=== PATIENT | female | born 1935 | race Caucasian/White ===

== ENCOUNTER 2017-09-14 17:58 | Inpatient (IN) | payer MEDICARE ==
[2017-09-14 18:52] LABS: ABS Basophils 0.1 10^3/ul (0-0.2); ABS Eosinophils 0.1 10^3/ul (0-0.6); ABS Lymphocytes 1.1 10^3/ul (1.0-4.8); ABS Monocytes 0.5 10^3/ul (0-0.8); ABS Neutrophils 6.8 10^3/ul (1.5-7.7); ABS Nucleated RBC 0 10^3/ul; Eosinophil % 0.9 % (0-6); Hematocrit 38 % (35-47); Hemoglobin 12.7 g/dl (12.0-16.0); Lymphocyte % 12.8 % (25-47); Mean Corpuscular HGB Conc 34 g/dl (31-36); Mean Corpuscular Hemoglobin 33 pg (27-31); Mean Corpuscular Volume 99 fL (80-97); Mean Platelet Volume 9 um3 (7.4-10.4); Nucleated Red Blood Cells % 0.2; Platelet Count 162 10^3/ul (150-450); Red Blood Count 3.81 10^6/ul (4.0-5.4); Red Cell Distribution Width 14 % (10.5-15); White Blood Count 8.6 10^3/ul (3.5-10.8)
[2017-09-14 19:01] LABS: EGFR Non-African American 68.8 (>60)
--- NOTE | 2017-09-14 19:17 | RAD ---
Indication: Fall. Indeterminate loss of consciousness. Comparison: No relevant prior exams available on the [facility] for comparison. Technique: Noncontrast CT vertex of skull through foramen magnum. Report: Moderately severe prominence of the cerebral sulci reflecting atrophy. Unremarkable ventricles and basal cisterns. 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 No kee matter white matter obscuration is seen in association with mass effect. Negative for intra or extra-axial hemorrhage. Symmetric mild calcification at the basal ganglia. Unremarkable orbital contents. Negative for fracture or suspicious lesion of the calvarium or skull base. Fluid level and gas bubbles at the LEFT sphenoid sinus. Negative for scalp hematoma. IMPRESSION: 1. No evidence for traumatic brain injury or acute intracranial process. 2. 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 3. Correlate for potential acute LEFT sphenoid sinusitis.
--- NOTE | 2017-09-14 19:21 | RAD ---
Indication: Syncope. Comparison: October 27, 2013 Technique: Upright AP 1852 hours Report: Cardiomegaly. Mild prominence of the central pulmonary vasculature. Mild prominence of the peripheral interstitial markings. Trace fluid in the RIGHT minor fissure. Small dependent pleural effusions with proportional basilar atelectasis. Negative for pneumothorax. IMPRESSION: Probable mild pulmonary vascular congestion with associated small pleural effusions and basilar atelectasis.
--- NOTE | 2017-09-14 19:25 | RAD ---
INDICATION: Syncope. Back pain. COMPARISON: October 27, 2013 CT angiogram. TECHNIQUE: Multidetector CT images foramen magnum to lung apices without contrast. Multiplanar reformation. REPORT: Normal vertebral alignment accounting for exam positioning without spondylolisthesis or subluxation at any level. Negative for cervical vertebral body or posterior element fracture. Negative for paravertebral hematoma. Degenerative spondylosis and facet joint osteoarthritis. Disc space narrowing is most prominent at C6-C7 moderately severe. At C6-C7 uncinate process spurring results in mild LEFT foraminal stenosis. No evidence for central canal stenosis. IMPRESSION: No CT evidence for traumatic brain injury.
[2017-09-14] MEDS ORDERED: NS 0.9% 500 ML* 500 ML IV ONE (19:28)
--- NOTE | 2017-09-14 20:43 | RAD ---
Indication: Fall with facial trauma. Bruise at the LEFT eye. Comparison: CT brain of the same date. TECHNIQUE: Multidetector CT base of the skull through mandible without contrast. Multiplanar reformation. Report: The orbital and maxillary sinus margins, zygomatic arches, lamina papyracea, base of the maxilla, pterygoid plates, and nasal bones are intact. The senile morphology mandible is intact. Normal temporal mandibular joint alignment. Fluid level and gas bubbles in the LEFT sphenoid sinus. Minimal soft tissue swelling at the LEFT malar eminence and preseptal orbital region without loculated hematoma. Unremarkable orbital contents. IMPRESSION: 1. No evidence for facial fracture. 2. Minimal soft tissue swelling at the LEFT malar eminence and preseptal orbital region without loculated hematoma. 3. Correlate for potential acute sphenoid sinusitis.
[2017-09-14] MEDS ORDERED: Metoprolol Tartrate TAB* 50 mg PO ONE (20:59)
--- NOTE | 2017-09-14 21:37 | ED ---
Judy Acosta Abhishek, scribed for Marina Avalos MD on 09/14/17 at 2116 . Complex/Multi-Sys Presentation - HPI Summary HPI Summary: This patient is an 82 year old F presenting to [facility] accompanied by son with a chief complaint of abrasion s/p fall since earlier today. According to the patients son, the patient woke up on the floor, inside the dining room, and was getting ready to close the door. The patient rates the pain 8/10 in severity. Symptoms aggravated by nothing. Symptoms alleviated by nothing. Patient reports bleeding from her mouth (prior to [facility] arrival), back pain ( acute from chronic back pain), and ecchymosis above the left eye. Patient denies edema LE, fever, HU, double vision blurry vision, ear ache neck pain chest pain, and ambulation. Patient was unable to recall the mechanism of the fall. - History Of Current Complaint Chief Complaint: EDSyncope Time Seen by Provider: 09/14/17 18:18 Hx Obtained From: Patient Onset/Duration: Sudden Onset, Lasting Hours - earlier today Location: Pain At: - back Aggravating Factor(s): nothing Alleviating Factor(s): nothing Associated Signs And Symptoms: Positive: Syncope - (unable to recall mechanism of fall), Back Pain - acute on chronic, Other - Bleeding from her mouth (prior to [facility] arrival), and ecchymosis above the left eye. Negative edema LE, HU, double vision, blurry vision, ear ache, neck pain and ambulation.. Negative: Chest Pain, Fever - Allergies/Home Medications Allergies/Adverse Reactions: Allergies Allergy/AdvReac Type Severity Reaction Status Date / Time Sulfa Antibiotics Allergy Unknown Unknown Verified 10/27/13 08:40 Reaction Details PMH/Surg Hx/FS Hx/Imm Hx Endocrine/Hematology History: Denies: Hx Diabetes Cardiovascular History: Denies: Hx Congestive Heart Failure, Hx Hypertension, Hx Pacemaker/ICD Respiratory History: Reports: Hx Pneumonia - "yearly" Denies: Hx Asthma, Hx Chronic Bronchitis, Hx Chronic Obstructive Pulmonary Disease (COPD), Hx Cystic Fibrosis, Hx Lung Cancer, Hx Pleural Effusion, Hx Pulmonary Edema, Hx Pulmonary Embolism, Hx Seasonal Allergies, Hx Sleep Apnea, Other Respiratory Problems/Disorders GI History: Reports: Hx Diverticulosis, Other GI Disorders - Hx diverticulitis Denies: Hx Cirrhosis, Hx Crohn's Disease, Hx Gall Bladder Disease, Hx Gastroesophageal Reflux Disease, Hx Gastrointestinal Bleed, Hx Hiatal Hernia, Hx Irritable Bowel, Hx Jaundice, Hx Obstructive Bowel, Hx Ileostomy, Hx Pyloric Stenosis, Hx Ulcer Sensory History: Denies: Hx Hearing Aid Neurological History: Reports: Other Neuro Impairments/Disorders - Current possible CVA Denies: Hx Dementia, Hx Developmental Delay, Hx Headaches, Hx Migraine, Hx Nerve Disease, Hx Seizures, Hx Spinal Cord Injury, Hx Transient Ischemic Attacks (TIA) Psychiatric History: Denies: Hx Panic Disorder - Surgical History Surgery Procedure, Year, and Place: appendectomy, partial coloectomy, partial hysterectomy,T&A,ORIF RT ARM Hx Anesthesia Reactions: No Infectious Disease History: Yes Infectious Disease History: Denies: Hx Hepatitis, Hx Tuberculosis, Traveled Outside the [place] in Last 30 Days - Family History Known Family History: Positive: Other - Cancer Negative: Cardiac Disease - Social History Occupation: Retired Alcohol Use: Daily Alcohol Amount: 1 cocktail nightly Substance Use Type: Reports: None Smoking Status (MU): Unknown if Ever Smoked Type: Cigarettes Amount Used/How Often: ppd Length of Time of Smoking/Using Tobacco: 60 yrs Have You Smoked in the Last Year: Yes Review of Systems Negative: Fever Eyes: Other - Negative double vision Negative: Blurred Vision Negative: Ear Ache Negative: Chest Pain Gastrointestinal: Negative Genitourinary: Negative Musculoskeletal: Other - Negative neck pain, and ambulation Positive: Myalgia - back pain. Negative: Edema Skin: Other - abrasion of the lip Positive: Other - ecchymosis above the left eye Positive: Syncope. Negative: Headache Psychological: Normal All Other Systems Reviewed And Are Negative: No Physical Exam - Summary Physical Exam Summary: Appearance: Alert, conversive, nontoxic appearing, very thing frail Skin: Warm, dry, no mottling, no rashes, no contusions, dried blood to her oral area HEENT: EOMI, PERRL, blood with mucosa, saliva to her mouth Neck: No masses on the neck, supple Respiratory: Clear to auscultation, breath sounds present, no rales, no rhonchi , no wheezes Cardiovascular: RRR, pulses are symmetrical in both lower and upper extremities Abdomen: Soft, non-tender Bowel Sounds: Present Musculoskeletal: mild tenderness to her right lower posterior rib cage, full range of motion of her hips Neurological: A&Ox3, CN II-XII Intact, moving all extremities symmetrically Psychiatric: Normal affect and mood Triage Information Reviewed: Yes Vital Signs On Initial Exam: Initial Vitals BP 185/153 09/14/17 18:11 Vital Signs Reviewed: Yes - Celsa Coma Scale Coma Scale Total: 15 Diagnostics - Vital Signs Vital Signs Temp Pulse Resp BP Pulse Ox 09/14/17 20:00 128 20 106/85 99 09/14/17 19:44 134 21 104/86 98 09/14/17 19:07 130 23 90 09/14/17 18:31 135 21 126/64 97 09/14/17 18:13 97.4 F 140 24 185/153 98 09/14/17 18:12 126 96 09/14/17 18:11 185/153 - Laboratory Lab Results: Lab Results 09/14/17 09/14/17 09/14/17 Range/Units 18:35 18:35 18:35 WBC 8.6 (3.5-10.8) 10^3/ul RBC 3.81 L (4.0-5.4) 10^6/ul Hgb 12.7 (12.0-16.0) g/dl Hct 38 (35-47) % MCV 99 H (80-97) fL MCH 33 H (27-31) pg MCHC 34 (31-36) g/dl RDW 14 (10.5-15) % Plt Count 162 (150-450) 10^3/ul MPV 9 (7.4-10.4) um3 Neut % (Auto) 79.0 (38-83) % Lymph % (Auto) 12.8 L (25-47) % [place] % (Auto) 6.3 (1-9) % Eos % (Auto) 0.9 (0-6) % Baso % (Auto) 1.0 (0-2) % Absolute Neuts (auto) 6.8 (1.5-7.7) 10^3/ul Absolute Lymphs (auto) 1.1 (1.0-4.8) 10^3/ul Absolute Monos (auto) 0.5 (0-0.8) 10^3/ul Absolute Eos (auto) 0.1 (0-0.6) 10^3/ul Absolute Basos (auto) 0.1 (0-0.2) 10^3/ul Absolute Nucleated RBC 0 10^3/ul Nucleated RBC % 0.2 Sodium 138 (133-145) mmol/L Potassium 4.0 (3.5-5.0) mmol/L Chloride 103 (101-111) mmol/L Carbon Dioxide 29 (22-32) mmol/L Anion Gap 6 (2-11) mmol/L BUN 31 H (6-24) mg/dL Creatinine 0.80 (0.51-0.95) mg/dL Est GFR ( Amer) 88.5 (>60) Est GFR (Non-Af Amer) 68.8 (>60) BUN/Creatinine Ratio 38.8 H (8-20) Glucose 103 H (70-100) mg/dL Lactic Acid 1.9 (0.5-2.0) mmol/L Calcium 8.4 L (8.6-10.3) mg/dL Magnesium 1.7 L (1.9-2.7) mg/dL Total Bilirubin 0.80 (0.2-1.0) mg/dL AST 20 (13-39) U/L ALT 13 (7-52) U/L Alkaline Phosphatase 73 (34-104) U/L Troponin I 0.03 (<0.04) ng/mL Total Protein 5.3 L (6.4-8.9) g/dL Albumin 2.9 L (3.2-5.2) g/dL Globulin 2.4 (2-4) g/dL Albumin/Globulin Ratio 1.2 (1-3) TSH 7.35 H (0.34-5.60) mcIU/mL Result Diagrams: 09/14/17 18:35 09/14/17 18:35 Lab Statement: Any lab studies that have been ordered have been reviewed, and results considered in the medical decision making process. - Radiology Chest X-ray Radiology Interpretation Completed By: Radiologist - CXR reveals, per radiologist, Probable mild pulmonary vascular congestion with associated small pleural effusions and basilar atelectasis. ED physician has reviewed this radiology report and agrees. - CT CT Head CT Interpretation Completed By: Radiologist - CT Head 1. No evidence for traumatic brain injury or acute intracranial process. 2. 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 3. Correlate for potential acute LEFT sphenoid sinusitis. ED physician has reviewed this radiology report and agrees. Maxillofacial CT CT Interpretation Completed By: Radiologist - Maxillofacial CT reveals 1. No evidence for facial fracture. 2. Minimal soft tissue swelling at the LEFT malar eminence and preseptal orbital region without loculated hematoma. 3. Correlate for potential acute sphenoid sinusitis. ED physician has reviewed this radiology report and agrees. CT cervical spine CT Interpretation Completed By: Radiologist - Ct cervical spine reveals No CT evidence for traumatic brain injury. ED physician has reviewed this radiology report and agrees. - EKG 182 EKG Rhythm: Sinus Tachycardia - 114 bpm Ectopy: PVCs EKG Interpretation: Taken at 182 Normal QRS QTC, Mild ST depression lateral leads; No AMI Complex Multi-Symp Course/Dx Course Of Treatment: We discussed patient care with Dr. Mendoza at 2130 and he accepts patient care. The patient will be admitted to the [facility]. The dx will be syncope. - Diagnoses Provider Diagnoses: Syncope - Physician Notifications Discussed Care Of Patient With: Sesar Mendoza - We discussed patient care and he accepts patient care. Time Discussed With Above Provider: 21:30 Instructed by Provider To: Admit As Inpatient Discharge - Discharge Plan Condition: Stable Disposition: ADMITTED TO [facility] Referrals: Michele Bailon MD [Primary Care Provider] - The documentation as recorded by the Judy longoria Abhishek accurately reflects the service I personally performed and the decisions made by , Marina Avalos MD.
[2017-09-14] MEDS ORDERED: CMCS: Melatonin (NF) 3 MG TAB PO PRN (22:21)
[2017-09-14 23:56] LABS: INR 0.99 (0.77-1.02)
[2017-09-15] MEDS: NS 0.9% 1000 ML* 1,000 ML IV SCH ×2 (00:14→07:10)
[2017-09-15] MEDS: oxyCODONE TAB* 5 MG TAB PO PRN ×3 (00:37→21:10)
--- NOTE | 2017-09-15 02:21 | HP ---
H&P (Free Text) History and Physical: PCP: Kate Bailon MD Date/Time: 04/15/20182119 CC: syncope HPI: Mrs Sparrow is an 82YO female HX TIA, HTN, HLD, & chronic LBP was in a chair at home this evening watching television when she got up to go to the kitchen. The next thing she knew she was on the floor and called to her son with whom she lives and who called EMS. She does recall intermittent palpitations while sitting in the chair, but no chest pain, SOB, sweats, light-headedness, nausea, change in speech/swallow/vision, or other issues. She denies HX of similar. She currently has no complaints. 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 SocHx: ~20PYHX cigarettes, occasional alcohol, no recreational drugs; lives with her son; DNR/I code status FamHx: positive for cancer, HTN ROS: as above, otherwise reviewed and all were negative vitals: Vital Signs Temp 36.3 C 09/15/17 03:49 Pulse 133 09/15/17 03:49 Resp 20 09/15/17 03:49 BP 104/51 09/15/17 03:49 Pulse Ox 97 09/15/17 03:49 Intake & Output 09/14/17 09/14/17 09/15/17 11:59 23:59 11:59 Intake Total 500 Balance 500 Weight 38.419 kg Intake: IV Fluids 500 Constitutional: NAD, normally developed, well-nourished elderly white female HEENM: atraumatic; sclera/conjunctiva: anicteric/clear; hearing: clinically intact; oropharynx: clear, mucosa moist Neck: soft tissue: non-tender; thyroid: normal Pulmonary: clear to auscultation bilaterally, good aeration, no accessory muscle use CV: while she is RR/RR upon my auscultation and SR on her ECG her HR trend shows she was initially running between 120-150 suspicious for FIB, normal S1S2 , no carotid bruit, no jugular venous distention, 2+ B DP/PT, trace BLE edema Abdominal: soft, non-distended, non-tender, no rebound/guarding/rigidity, normoactive bowel sounds, no hepatosplenomegaly or masses, no costovertebral angle tenderness Musculoskeletal: general: grossly intact, no palpable tenderness Integumental: normal appearance and texture of exposed skin Psychiatric orientation: AA&O to PPS affect: calm mood: cooperative eye contact: good content: reliable responses: timely insight: good Testing: Lab Results 09/14/17 09/14/17 09/14/17 Range/Units 18:35 18:35 18:35 WBC 8.6 (3.5-10.8) 10^3/ul RBC 3.81 L (4.0-5.4) 10^6/ul Hgb 12.7 (12.0-16.0) g/dl Hct 38 (35-47) % MCV 99 H (80-97) fL MCH 33 H (27-31) pg MCHC 34 (31-36) g/dl RDW 14 (10.5-15) % Plt Count 162 (150-450) 10^3/ul MPV 9 (7.4-10.4) um3 Neut % (Auto) 79.0 (38-83) % Lymph % (Auto) 12.8 L (25-47) % Desha % (Auto) 6.3 (1-9) % Eos % (Auto) 0.9 (0-6) % Baso % (Auto) 1.0 (0-2) % Absolute Neuts (auto) 6.8 (1.5-7.7) 10^3/ul Absolute Lymphs (auto) 1.1 (1.0-4.8) 10^3/ul Absolute Monos (auto) 0.5 (0-0.8) 10^3/ul Absolute Eos (auto) 0.1 (0-0.6) 10^3/ul Absolute Basos (auto) 0.1 (0-0.2) 10^3/ul Absolute Nucleated RBC 0 10^3/ul Nucleated RBC % 0.2 INR (Anticoag Therapy) (0.77-1.02) APTT (26.0-36.3) seconds Sodium 138 (133-145) mmol/L Potassium 4.0 (3.5-5.0) mmol/L Chloride 103 (101-111) mmol/L Carbon Dioxide 29 (22-32) mmol/L Anion Gap 6 (2-11) mmol/L BUN 31 H (6-24) mg/dL Creatinine 0.80 (0.51-0.95) mg/dL Est GFR ( Amer) 88.5 (>60) Est GFR (Non-Af Amer) 68.8 (>60) BUN/Creatinine Ratio 38.8 H (8-20) Glucose 103 H (70-100) mg/dL Lactic Acid 1.9 (0.5-2.0) mmol/L Calcium 8.4 L (8.6-10.3) mg/dL Magnesium 1.7 L (1.9-2.7) mg/dL Total Bilirubin 0.80 (0.2-1.0) mg/dL AST 20 (13-39) U/L ALT 13 (7-52) U/L Alkaline Phosphatase 73 (34-104) U/L Troponin I 0.03 (<0.04) ng/mL Total Protein 5.3 L (6.4-8.9) g/dL Albumin 2.9 L (3.2-5.2) g/dL Globulin 2.4 (2-4) g/dL Albumin/Globulin Ratio 1.2 (1-3) TSH 7.35 H (0.34-5.60) mcIU/mL 09/14/17 09/14/17 Range/Units 23:28 23:28 WBC (3.5-10.8) 10^3/ul RBC (4.0-5.4) 10^6/ul Hgb (12.0-16.0) g/dl Hct (35-47) % MCV (80-97) fL MCH (27-31) pg MCHC (31-36) g/dl RDW (10.5-15) % Plt Count (150-450) 10^3/ul MPV (7.4-10.4) um3 Neut % (Auto) (38-83) % Lymph % (Auto) (25-47) % Desha % (Auto) (1-9) % Eos % (Auto) (0-6) % Baso % (Auto) (0-2) % Absolute Neuts (auto) (1.5-7.7) 10^3/ul Absolute Lymphs (auto) (1.0-4.8) 10^3/ul Absolute Monos (auto) (0-0.8) 10^3/ul Absolute Eos (auto) (0-0.6) 10^3/ul Absolute Basos (auto) (0-0.2) 10^3/ul Absolute Nucleated RBC 10^3/ul Nucleated RBC % INR (Anticoag Therapy) 0.99 (0.77-1.02) APTT 31.0 (26.0-36.3) seconds Sodium (133-145) mmol/L Potassium (3.5-5.0) mmol/L Chloride (101-111) mmol/L Carbon Dioxide (22-32) mmol/L Anion Gap (2-11) mmol/L BUN (6-24) mg/dL Creatinine (0.51-0.95) mg/dL Est GFR ( Amer) (>60) Est GFR (Non-Af Amer) (>60) BUN/Creatinine Ratio (8-20) Glucose (70-100) mg/dL Lactic Acid (0.5-2.0) mmol/L Calcium (8.6-10.3) mg/dL Magnesium (1.9-2.7) mg/dL Total Bilirubin (0.2-1.0) mg/dL AST (13-39) U/L ALT (7-52) U/L Alkaline Phosphatase (34-104) U/L Troponin I 0.03 (<0.04) ng/mL Total Protein (6.4-8.9) g/dL Albumin (3.2-5.2) g/dL Globulin (2-4) g/dL Albumin/Globulin Ratio (1-3) TSH (0.34-5.60) mcIU/mL ECG, personally reviewed: NSR rate 114, no ischemia, occasional PAC & PVC CXR, personally reviewed: IMPRESSION: Probable mild pulmonary vascular congestion with associated small pleural effusions and basilar atelectasis. CT brain WO, personally reviewed: IMPRESSION: 1. No evidence for traumatic brain injury or acute intracranial process. 2. 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 3. Correlate for potential acute LEFT sphenoid sinusitis. CT maxillofacial WO, personally reviewed: IMPRESSION: 1. No evidence for facial fracture. 2. Minimal soft tissue swelling at the LEFT malar eminence and preseptal orbital region without loculated hematoma. 3. Correlate for potential acute sphenoid sinusitis. CT C-spine WO, personally reviewed: IMPRESSION: No CT evidence for traumatic brain injury. Impression: 82F presenting with syncope clinically sounding like orthostasis, but with her palpitations & HR irregularity I am suspicious she may have been in AFIB and syncopized from a conversion pause DIAGNOSIS & PLAN Primary syncope : telemetry : trend troponin : supplemental oxygen : ECHO in AM : supportive care Secondary TIA : no acute issue HTN : continue metoprolol hypercholesterolemia, pure : continue atorvastatin chronic LBP : continue tramadol & cyclobenzaprine : hold naproxen Admission Rational: observation for syncope work up DVTp: heparin SQ Code Status: DNR/I HCP: son, Juno Hicks
[2017-09-15] MEDS: traMADol TAB* 50 MG PO PRN ×2 (03:02→10:52)
[2017-09-15] MEDS ORDERED: Diltiazem TAB* 30 MG PO ONE (03:20)
[2017-09-15] MEDS ORDERED: Enoxaparin(*) 40 MG/0.4 ML SYR SUBCUT ONE (05:12)
[2017-09-15] MEDS ORDERED: NS 0.9% IV ONE (05:23)
[2017-09-15] MEDS ORDERED: Heparin VIAL(*) 5000 UNITS/ML VIAL (FIVE THOUSAND) SUBCUT SCH (06:00)
[2017-09-15] MEDS: Omeprazole CAP* 20 MG PO SCH (07:13)
[2017-09-15 07:16] LABS: Hematocrit 38 % (35-47); Hemoglobin 12.7 g/dl (12.0-16.0); Mean Corpuscular HGB Conc 34 g/dl (31-36); Mean Corpuscular Hemoglobin 34 pg (27-31); Mean Corpuscular Volume 100 fL (80-97); Mean Platelet Volume 9 um3 (7.4-10.4); Platelet Count 153 10^3/ul (150-450); Red Blood Count 3.77 10^6/ul (4.0-5.4); Red Cell Distribution Width 14 % (10.5-15); White Blood Count 8.4 10^3/ul (3.5-10.8)
[2017-09-15] MEDS: Acetaminophen TAB* 325 MG PO PRN ×2 (08:18→21:11)
[2017-09-15] MEDS ORDERED: Docusate CAP* 100 MG PO SCH (09:00)
--- NOTE | 2017-09-15 09:22 | ECHO ---
Patient: DANNY COCHRAN [facility] Rec#: [id number] : 1935 Date: 09/15/2017 Age: 82y Height: 152.4 cm / 60.0 in Weight: 39.46 kg / 87.0 lbs Sex: F BSA: 1.31 Room#: [facility] Admit Date#: 09/14/2017 Type: Inpatient Referring: Sesar Mendoza MD Reading: Marvin Lopez DO Dot Compliance Manager: Gwen ZavalaSHERYL CC: Michele Bailon MD Transthoracic Echocardiogram Indication: Synocope BP: 79/50 HR: 100 Rhythm: A-Fib Findings History: Smoker, TIA 2013, HTN, HLD. Technical Comments: The study quality is good. Completed at 0830. Left Ventricle: The left ventricular chamber size is decreased. Mild concentric left ventricular hypertrophy is observed. Global left ventricular wall motion and contractility are within normal limits. The left ventricle appears hyperdynamic. The estimated ejection fraction is greater than 65%. Abnormal left ventricular diastolic filling is observed, consistent with impaired relaxation. Left Atrium: The left atrium is severely dilated. Right Ventricle: The right ventricle is mildly dilated. The right ventricular global systolic function is mildly to moderately reduced. Right Atrium: The right atrial cavity size is severely dilated. There is evidence of an atrial septal aneurysm. Aortic Valve: The aortic valve is trileaflet. The aortic valve leaflets are mildly thickened. There is no evidence of aortic regurgitation. There is no evidence of aortic stenosis. Mitral Valve: There is mitral annular calcification. The mitral valve leaflets are mildly thickened. There is mild mitral valve prolapse. There is mild mitral regurgitation. There is no evidence of mitral stenosis. Tricuspid Valve: The tricuspid valve leaflets are mildly thickened. There is severe tricuspid regurgitation. There is evidence of severe pulmonary hypertension. There is no tricuspid stenosis. Pulmonic Valve: The pulmonic valve appears thickened with good excursion. There is a trace pulmonic regurgitation. There is no pulmonic stenosis. Pericardium: There is no significant pericardial effusion. Aorta: There is mild dilatation of the ascending aorta. There is no dilatation of the aortic arch. The aortic root is normal in size. Pulmonary Artery: The main pulmonary artery appears normal. Venous: The inferior vena cava is dilated. There is less than 50% respiratory change in the inferior vena cava dimension. Hepatic vein systolic flow is reversed. Conclusions The left ventricular chamber size is decreased. Mild concentric left ventricular hypertrophy is observed. The left ventricle appears hyperdynamic. The estimated ejection fraction is greater than 70%. The left atrium is severely dilated. The right ventricle is mildly dilated. The right ventricular global systolic function is mild to moderately reduced. The right atrial cavity size is very severely dilated. There is mild mitral valve prolapse with mild mitral regurgitation. There is severe tricuspid regurgitation. There is evidence of severe pulmonary hypertension. Uncertain atrial rhythm at time of examination, otherwise no significant changes from prior echo 03/2017 other than hyperdynamic LVEF currently and RV function is now reduced (was hyperdynamic previously) Measurements Name Value Normal Range RVIDd (AP) 2D 3 cm (0.9 - 2.6) RVDdMajor (2D) 4.6 cm (2.2 - 4.4) RAd ISD 4CH 8.4 cm (3.4 - 4.9) RA (A4C)W 5.5 cm (2.9 - 4.6) IVSd (2D) 1.1 cm (0.6 - 1) LVPWd (2D) 1.2 cm (0.6 - 1) LVIDd (2D) 2.3 cm (3.6 - 5.4) LVIDs (2D) 1.5 cm - LV FS (2D) 31 % (25 - 45) Aortic Annulus 1.8 cm (1.4 - 2.6) Ao root diameter (2D) 3.5 cm (2.1 - 3.5) Ascending Ao 3.4 cm (2.1 - 3.4) Aortic arch 2.4 cm (1.8 - 3.4) LA dimension (AP) 2D 3.8 cm (2.3 - 3.8) LAd ISD 4CH 6.4 cm (2.9 - 5.3) LA ISD 4CH W 5 cm (2.5 - 4.5) Name Value Normal Range LA ESV SP 4CH (A/L) 131 ml - LA ESV SP 2CH (A/L) 66 ml - LA ESV BP (A/L) 95 ml - LA ESV BP (A/L) index 72.26 ml/m2 - LA ESV SP 4CH (MOD) 114 ml - LA ESV SP 2CH (MOD) 66 ml - Name Value Normal Range MV E-wave Vmax 0.54 m/sec - MV deceleration time 224.9 msec - MV A-wave Vmax 0.73 m/sec - MV E:A ratio 0.74 ratio - LV septal e' Vmax 0.07 m/sec - LV lateral e' Vmax 0.12 m/sec - LV E:e' septal ratio 7.71 ratio - LV E:e' lateral ratio 4.5 ratio - Name Value Normal Range AV Vmax 0.72 m/sec - AV VTI 15.37 cm - AV peak gradient 2.12 mmHg - AV mean gradient 1.15 mmHg - LVOT Vmax 0.62 m/sec - LVOT VTI 12.31 cm - LVOT peak gradient 1.57 mmHg - LVOT mean gradient 0.87 mmHg - BOBO Vmax 0.31 m/sec - Name Value Normal Range TR Vmax 3.6 m/sec - TR peak gradient 52 mmHg - RAP 15 mmHg - RVSP 67 mmHg - IVC diameter 2.7 cm - Name Value Normal Range PV Vmax 0.66 m/sec - PV peak gradient 1.74 mmHg - MO end-diastolic Vmax 1.65 m/sec -
--- NOTE | 2017-09-15 17:41 | PN ---
Subjective Date of Service: 09/15/17 Interval History: She states this was her first episode of syncope. It happened too fast for her to notice anything. She has had palpitations for a few days. Not SOB. Objective Active Medications: Acetaminophen (Tylenol Tab*) 650 mg PO Q6H PRN PRN Reason: FEVER/PAIN Last Admin: 09/15/17 08:18 Dose: 650 mg Apixaban (Eliquis) 2.5 mg PO BID TOBY Omeprazole (Prilosec Cap*) 20 mg PO DAILY@0600 TOBY Last Admin: 09/15/17 07:13 Dose: 20 mg Ondansetron HCl (Zofran Inj*) 4 mg IV Q6H PRN PRN Reason: NAUSEA Oxycodone HCl (Roxycodone Tab*) 2.5 mg PO Q4H PRN PRN Reason: PAIN Last Admin: 09/15/17 08:19 Dose: 2.5 mg Tramadol HCl (Ultram*) 50 mg PO Q6H PRN PRN Reason: PAIN Last Admin: 09/15/17 10:52 Dose: 50 mg Vital Signs - 8 hr 09/15/17 09/15/17 09/15/17 10:52 10:55 11:14 Temperature 97.7 F Pulse Rate 76 Respiratory 18 18 18 Rate Blood Pressure 96/60 (mmHg) O2 Sat by Pulse 96 Oximetry 09/15/17 09/15/17 13:39 16:18 Temperature 97.5 F Pulse Rate 72 Respiratory 16 15 Rate Blood Pressure 100/70 (mmHg) O2 Sat by Pulse 97 Oximetry Oxygen Devices in Use Now: None, Nasal Cannula Appearance: Alert, partly up in bed. In good spirits, looks comfortable. Eyes: No Scleral Icterus Respiratory: Symmetrical Chest Expansion and Respiratory Effort, Clear to Auscultation, Clear to Percussion Cardiovascular: NL Sounds; No Murmurs; No JVD, RRR, No Edema, - Extremities: No Edema, No Clubbing, Cyanosis, - Skin: No Rash or Ulcers, No Nodules or Sclerosis, - Neurological: Alert and Oriented x 3, NL Sensation Result Diagrams: 09/15/17 06:56 09/15/17 06:56 Additional Lab and Data: Lab Results 09/14/17 09/14/17 09/14/17 Range/Units 18:35 18:35 18:35 WBC 8.6 (3.5-10.8) 10^3/ul RBC 3.81 L (4.0-5.4) 10^6/ul Hgb 12.7 (12.0-16.0) g/dl Hct 38 (35-47) % MCV 99 H (80-97) fL MCH 33 H (27-31) pg MCHC 34 (31-36) g/dl RDW 14 (10.5-15) % Plt Count 162 (150-450) 10^3/ul MPV 9 (7.4-10.4) um3 Neut % (Auto) 79.0 (38-83) % Lymph % (Auto) 12.8 L (25-47) % Archer % (Auto) 6.3 (1-9) % Eos % (Auto) 0.9 (0-6) % Baso % (Auto) 1.0 (0-2) % Absolute Neuts (auto) 6.8 (1.5-7.7) 10^3/ul Absolute Lymphs (auto) 1.1 (1.0-4.8) 10^3/ul Absolute Monos (auto) 0.5 (0-0.8) 10^3/ul Absolute Eos (auto) 0.1 (0-0.6) 10^3/ul Absolute Basos (auto) 0.1 (0-0.2) 10^3/ul Absolute Nucleated RBC 0 10^3/ul Nucleated RBC % 0.2 Sodium 138 (133-145) mmol/L Potassium 4.0 (3.5-5.0) mmol/L Chloride 103 (101-111) mmol/L Carbon Dioxide 29 (22-32) mmol/L Anion Gap 6 (2-11) mmol/L BUN 31 H (6-24) mg/dL Creatinine 0.80 (0.51-0.95) mg/dL Est GFR ( Amer) 88.5 (>60) Est GFR (Non-Af Amer) 68.8 (>60) BUN/Creatinine Ratio 38.8 H (8-20) Glucose 103 H (70-100) mg/dL Lactic Acid 1.9 (0.5-2.0) mmol/L Calcium 8.4 L (8.6-10.3) mg/dL Magnesium 1.7 L (1.9-2.7) mg/dL Total Bilirubin 0.80 (0.2-1.0) mg/dL AST 20 (13-39) U/L ALT 13 (7-52) U/L Alkaline Phosphatase 73 (34-104) U/L Troponin I 0.03 (<0.04) ng/mL Total Protein 5.3 L (6.4-8.9) g/dL Albumin 2.9 L (3.2-5.2) g/dL Globulin 2.4 (2-4) g/dL Albumin/Globulin Ratio 1.2 (1-3) TSH 7.35 H (0.34-5.60) mcIU/mL Assess/Plan/Problems-Billing Assessment: - Patient Problems (1) PAF (paroxysmal atrial fibrillation) Current Visit: Yes Status: Acute Code(s): I48.0 - PAROXYSMAL ATRIAL FIBRILLATION SNOMED Code(s): 365216744 Comment: With hx TIA, would benefit from apixaban--start 1/5 PM. CTA to r/o PE. (2) PHT (pulmonary hypertension) Current Visit: Yes Status: Acute Code(s): I27.20 - PULMONARY HYPERTENSION, UNSPECIFIED SNOMED Code(s): 73125476 Comment: Dr. Hawkins to consult. (3) Tobacco abuse Current Visit: Yes Status: Acute Code(s): Z72.0 - TOBACCO USE SNOMED Code( s): 312011882 Comment: Pt advised to quit smoking and avoid second hand smoke. Note lives with her son who smokes.
[2017-09-15] MEDS ORDERED: Iohexol 350* (CONTRAST) 500 ML MDV IV ONE (17:51)
--- NOTE | 2017-09-15 18:49 | RAD ---
INDICATION: Syncope. Chest discomfort. COMPARISON: September 14, 2017 chest radiograph. TECHNIQUE: Multidetector CT images were obtained from the lung apices to the upper abdomen with 46 mL Omnipaque 350 IV contrast. Pulmonary angiogram protocol. Multiplanar reformation including with maximum intensity projection. REPORT: Advanced emphysema. Bilateral small dependent pleural effusions with proportional atelectasis. Mild alveolar and interstitial consolidation at the anterior segment of the RIGHT upper lobe. Negative for pneumothorax. Normal diameter thoracic aorta. Negative for sufficient contrast opacification of the thoracic aorta to assess for aortic dissection. Cardiomegaly with severe RIGHT cardiac chamber enlargement. Negative for pericardial effusion. No filling defects are identified from the main to the subsegmental pulmonary arteries to indicate presence of a pulmonary embolism. Images through the upper abdomen are remarkable for reflux of contrast from the RIGHT atrium into the IVC and hepatic veins consistent with passive congestion of the liver. 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 No gross cortical disruption or trabecular impaction to confirm presence of an acute injury. Negative for retropulsion of the middle column of the thoracic spine at any level. IMPRESSION: 1. No evidence for pulmonary embolism. 2. Advanced emphysema with stigmata of pulmonary arterial hypertension/cor pulmonale. Associated passive congestion of the liver. 3. Small bilateral pleural effusions with proportional basilar atelectasis. 4. Airspace consolidation at the anterior segment of the RIGHT upper lobe concerning for pneumonia.
[2017-09-15] MEDS: Apixaban* 2.5 MG TAB PO SCH (21:11)
[2017-09-15] MEDS: Ondansetron INJ* 2 MG/ML VIAL IV PRN (21:11)
[2017-09-16] MEDS: Cyclobenzaprine TAB* 10 MG PO PRN ×2 (01:28→19:17)
[2017-09-16] MEDS: traMADol TAB* 50 MG PO PRN (01:28)
[2017-09-16] MEDS ORDERED: Diltiazem IV VIAL* 125 MG in NS 0.9% 100 ML* 100 ML IV SCH (01:39)
[2017-09-16] MEDS ORDERED: Diltiazem DRIP* 100 MG/100 ML ADDV.BAG IVPB ONE (01:39)
[2017-09-16] MEDS: Omeprazole CAP* 20 MG PO SCH (06:02)
[2017-09-16] MEDS: oxyCODONE TAB* 5 MG TAB PO PRN (06:02)
[2017-09-16] MEDS: Acetaminophen TAB* 325 MG PO PRN ×2 (06:02→19:17)
[2017-09-16] MEDS: Diltiazem IV VIAL* 125 MG in NS 0.9% 100 ML* 100 ML IV SCH ×2 (06:43→07:29)
[2017-09-16] MEDS ORDERED: Digoxin IV* 0.5 MG/2 ML AMP (0.25 MG/ML) IV ONE (06:56)
[2017-09-16] MEDS: Apixaban* 2.5 MG TAB PO SCH ×2 (08:21→21:19)
[2017-09-16] MEDS ORDERED: Amiodarone TAB* 200 MG PO SCH (09:00)
--- NOTE | 2017-09-16 09:32 | PN ---
Subjective Date of Service: 09/16/17 Interval History: C/O occipital headache. Objective Active Medications: Acetaminophen (Tylenol Tab*) 650 mg PO Q6H PRN PRN Reason: FEVER/PAIN Last Admin: 09/16/17 06:02 Dose: 650 mg Amiodarone HCl (Cordarone Tab*) 200 mg PO BID [facility] Apixaban (Eliquis) 2.5 mg PO BID [facility] Last Admin: 09/16/17 08:21 Dose: 2.5 mg Cyclobenzaprine HCl (Flexeril Tab*) 10 mg PO TID PRN PRN Reason: SPASMS - MUSCLE Last Admin: 09/16/17 01:28 Dose: 10 mg Omeprazole (Prilosec Cap*) 20 mg PO DAILY@0600 [facility] Last Admin: 09/16/17 06:02 Dose: 20 mg Ondansetron HCl (Zofran Inj*) 4 mg IV Q6H PRN PRN Reason: NAUSEA Last Admin: 09/15/17 21:11 Dose: 4 mg Oxycodone HCl (Roxycodone Tab*) 2.5 mg PO Q4H PRN PRN Reason: PAIN Last Admin: 09/16/17 06:02 Dose: 2.5 mg Tramadol HCl (Ultram*) 50 mg PO Q6H PRN PRN Reason: PAIN Last Admin: 09/16/17 01:28 Dose: 50 mg Vital Signs - 8 hr 09/16/17 09/16/17 09/16/17 02:00 04:06 06:02 Temperature 97.7 F Pulse Rate 98 91 Respiratory 20 20 Rate Blood Pressure 97/52 97/54 (mmHg) O2 Sat by Pulse 100 Oximetry 09/16/17 09/16/17 09/16/17 06:54 08:21 08:29 Temperature Pulse Rate 149 111 Respiratory 22 Rate Blood Pressure 82/49 (mmHg) O2 Sat by Pulse Oximetry Oxygen Devices in Use Now: Nasal Cannula Appearance: Alert, head partly up in bed. Looks weak. Eyes: No Scleral Icterus Neck: - - marked JVD at 30 degrees. Cor irreg, rapid Extremities: No Edema, No Clubbing, Cyanosis, - Skin: No Rash or Ulcers, No Nodules or Sclerosis, - Neurological: Alert and Oriented x 3, NL Sensation Result Diagrams: 09/15/17 06:56 09/15/17 06:56 Additional Lab and Data: Lab Results 09/14/17 09/14/17 09/14/17 Range/Units 18:35 18:35 18:35 WBC 8.6 (3.5-10.8) 10^3/ul RBC 3.81 L (4.0-5.4) 10^6/ul Hgb 12.7 (12.0-16.0) g/dl Hct 38 (35-47) % MCV 99 H (80-97) fL MCH 33 H (27-31) pg MCHC 34 (31-36) g/dl RDW 14 (10.5-15) % Plt Count 162 (150-450) 10^3/ul MPV 9 (7.4-10.4) um3 Neut % (Auto) 79.0 (38-83) % Lymph % (Auto) 12.8 L (25-47) % Preston % (Auto) 6.3 (1-9) % Eos % (Auto) 0.9 (0-6) % Baso % (Auto) 1.0 (0-2) % Absolute Neuts (auto) 6.8 (1.5-7.7) 10^3/ul Absolute Lymphs (auto) 1.1 (1.0-4.8) 10^3/ul Absolute Monos (auto) 0.5 (0-0.8) 10^3/ul Absolute Eos (auto) 0.1 (0-0.6) 10^3/ul Absolute Basos (auto) 0.1 (0-0.2) 10^3/ul Absolute Nucleated RBC 0 10^3/ul Nucleated RBC % 0.2 Sodium 138 (133-145) mmol/L Potassium 4.0 (3.5-5.0) mmol/L Chloride 103 (101-111) mmol/L Carbon Dioxide 29 (22-32) mmol/L Anion Gap 6 (2-11) mmol/L BUN 31 H (6-24) mg/dL Creatinine 0.80 (0.51-0.95) mg/dL Est GFR ( Amer) 88.5 (>60) Est GFR (Non-Af Amer) 68.8 (>60) BUN/Creatinine Ratio 38.8 H (8-20) Glucose 103 H (70-100) mg/dL Lactic Acid 1.9 (0.5-2.0) mmol/L Calcium 8.4 L (8.6-10.3) mg/dL Magnesium 1.7 L (1.9-2.7) mg/dL Total Bilirubin 0.80 (0.2-1.0) mg/dL AST 20 (13-39) U/L ALT 13 (7-52) U/L Alkaline Phosphatase 73 (34-104) U/L Troponin I 0.03 (<0.04) ng/mL Total Protein 5.3 L (6.4-8.9) g/dL Albumin 2.9 L (3.2-5.2) g/dL Globulin 2.4 (2-4) g/dL Albumin/Globulin Ratio 1.2 (1-3) TSH 7.35 H (0.34-5.60) mcIU/mL Assess/Plan/Problems-Billing Assessment: - Patient Problems (1) PAF (paroxysmal atrial fibrillation) Current Visit: Yes Status: Acute Code(s): I48.0 - PAROXYSMAL ATRIAL FIBRILLATION SNOMED Code(s): 389856168 Comment: Apixaban started 09/15 PM. CTA 09/15 negative for PE. One dose digoxin 0.25 mg IV given 09/16, amiodarone 200 mg bid started 09/[address] Mcgee 09/16, will transfer to ICU for IV amiodarone. (2) PHT (pulmonary hypertension) Current Visit: Yes Status: Acute Code(s): I27.20 - PULMONARY HYPERTENSION, UNSPECIFIED SNOMED Code(s): 64061084 Comment: Dr. Hawkins to consult. (3) Tobacco abuse Current Visit: Yes Status: Acute Code(s): Z72.0 - TOBACCO USE SNOMED Code( s): 405305038 Comment: Pt advised to quit smoking and avoid second hand smoke. Note lives with her son who smokes.
[2017-09-16] MEDS ORDERED: Amiodarone 150 MG IVPREMIX* 150 MG/100 ML BAG IV ONE (10:50)
[2017-09-16] MEDS ORDERED: Amiodarone 360 MG IVPREMIX* 360 MG/200 ML BAG IV ONE (11:20)
[2017-09-16] MEDS ORDERED: NS 0.9% 500 ML* 500 ML IV ONE (12:00)
--- NOTE | 2017-09-16 15:41 | CONS ---
CC: Dr. Bailon; Dr. Navarro CARDIOLOGY CONSULTATION: DATE OF CONSULT: 09/16/17 INDICATION FOR CONSULT: Atrial fibrillation, syncope. HISTORY OF PRESENT ILLNESS: The patient is an 82-year-old female with a history of hypertension, hyp erlipidemia, who came to the hospital after having a syncopal episode at home. The patient states sh elkin was at home. She got up to go from her chair to the kitchen and fell striking the right side of he r head. She called her son who helped her to get back in to her chair. While she was in the chair, she had palpitations. On arrival of EMS, the patient was in atrial fibrillation with rapid ventricul ar response. The patient was transported to the emergency room where she was diagnosed with rapid at rial fibrillation. The patient has had intermittent episodes of normal sinus rhythm, but has mostly been in atrial fibrillation for the past 24 hours. The patient denies any chest pain. She denies an y shortness of breath. She does have palpitations. She denies any lightheadedness or dizziness whil e she is sitting in bed. The patient is unable to give me any history as she is fairly exhausted sit ting in bed. I cannot tell whether she was having episodes of palpitations before her episodes of sy ncope. It is unclear how long she had been in atrial fibrillation, but there is a good chance that i t just started when she had her episode of syncope. The patient has converted back to normal sinus r hythm for brief episodes while she was on telemetry; none of those were associated with long pauses t o account for her episode of syncope. The patient is hypotensive when she is in atrial fibrillation with a blood pressure of 90/60. PAST MEDICAL HISTORY: Significant for hypertension, SVT, severe back pain. PAST SURGICAL HISTORY: Appendectomy, partial colectomy, hysterectomy. OUTPATIENT MEDICATIONS: 1. Atorvastatin 40 mg a day. 2. Aspirin 81 mg a day. 3. Aleve as needed. 4. Metoprolol tartrate 50 mg b.i.d. 5. Lortab for pain control. ALLERGIES: To SULFA MEDICATIONS. SOCIAL HISTORY: She has mild dementia. She lives with her son. She drinks 2 to 3 drinks at night. She has 10 cigarettes a day. She does not get any regular exercise. PHYSICAL EXAM: Height is 5 feet 2 inches, weight is 84 pounds. Temperature 97.9, heart rate is 109, blood pressure 82/49, respiratory rate is 20, oxygen saturation 100% on 2 L. Sclerae anicteric. Or opharynx is pink without erythema. Carotids are 2+ without bruits. JVD is normal. Thyroid is marin l. Cardiac Exam: S1, S2 with a 2/6 systolic ejection murmur heard best at the right midsternal bord er. PMI is normal. Lungs are clear to auscultation. There is no dullness to percussion. Abdomen is soft, nontender, nondistended with normoactive bowel sounds. Extremities show no edema. She has 2+ pulses throughout. The patient is awake and alert. I could not tell whether she is oriented as she is not willing to answer many questions. DIAGNOSTIC STUDIES/LAB DATA: Chemistries within normal limits. BUN 35, creatinine 0.83. Troponin l evel 0.03. TSH 7.35. CBC within normal limits. EKG demonstrates atrial flutter with rapid ventricular response. The patient did have an echocardiogram yesterday, which showed normal LV size and systolic function, normal aortic valve, there is mild mitral regurgitation, there is severe tricuspid regurgitation with severe pulmonary hypertension. This is the same as her echocardiogram 6 months ago. He patient did have a CTA of her chest, which showed no evidence of pulmonary embolism. IMPRESSION: An 82-year-old female, who was admitted to the hospital with syncopal episode at home. She was found to have atrial fibrillation with rapid ventricular response and hypotension. Currently, the patient is in the intensive care unit. She is getting an amiodarone infusion to contr ol her atrial arrhythmias. The patient is not in extremis and I think we can wait for the amiodarone to work to convert her back to normal sinus rhythm. The patient has had brief episodes of normal si nus rhythm since she has been in the intensive care unit. The patient is on Eliquis now for her atria l fibrillation and risk of thromboembolic events. Further recommendations pending her hospital cours e. This was discussed with Dr. Wisdom. [id number]/[facility] #: [id number]
--- NOTE | 2017-09-16 15:57 | CONS ---
PULMONARY CONSULTATION REPORT: DATE OF CONSULT: 09/16/17 CONSULTATION REQUESTED BY: Dr. Wisdom. REASON FOR CONSULT: Evaluation of pulmonary hypertension. HISTORY OF PRESENT ILLNESS: The patient is an 82-year-old female with history of TIA, hypertension, dyslipidemia, chronic low blood pressure, current smoker with significant smoking history with possible COPD, who presents for evaluation of syncope at home. The patient was watching TV when she got up to go to the kitchen and was found on the floor. The patient could not recall the events in the interim. She called her son who called EMS and was brought into the ED for further evaluation. The patient denied chest pain, shortness of breath, sweats, lightheadedness, nausea, change in vision. The patient was found to be having new- onset atrial fibrillation. She was transferred to ICU due to hypotension to be started on amiodarone. The patient is currently tachycardic. She is drowsy; however, answers questions appropriately. The patient is a poor historian, unable to provide much history at this time. The patient reports headache resulting from the fall and neck pain. Imaging studies did not reveal any acute fractures. The patient with bruise on her left eye and forehead and had laceration of her chin. The patient had echocardiogram, which showed evidence of pulmonary hypertension. There was also evidence of mitral valve prolapse and regurgitation. There also was evidence of severe tricuspid regurgitation. Both atria were significantly dilated. There also was evidence of hyperdynamic left ventricle with some hypertrophy. The patient is on digoxin with rate in high 100s. CTA of the chest was personally reviewed by me. No evidence of pulmonary embolism. There was evidence of significant dilation of pulmonary artery consistent with pulmonary hypertension. PAST MEDICAL HISTORY: 1. TIA. 2. Hypertension. 3. Hypercholesterolemia. 4. Chronic low blood pressure. PAST SURGICAL HISTORY: 1. Cecal volvulus, status post resection and repair. 2. Appendectomy. 3. Ovarian tumor excision. MEDICATIONS: 1. Lipitor. 2. Flexeril. 3. Metoprolol. 4. Naprosyn. 5. Tramadol. ALLERGIES: SULFA. FAMILY HISTORY: Positive for cancer in mother, hypertension. SOCIAL HISTORY: A [id number] smoker, occasional alcohol intake. No recreational drug abuse. Lives at home with her son. The patient is DNR/DNI. REVIEW OF SYSTEMS: All 14 systems were reviewed and as per HPI. PHYSICAL EXAM: The patient in bed, in no apparent distress. Vital Signs: Temperature 97.9, pulse 109 beats per minute, respiratory rate 20 per minute, O2 sat 100% on 3 L O2, and blood pressure 82/49, improved to 110/70. HEENT: Pupils equal and reactive to light, mucous membranes moist, sclerae anicteric. Neck: Normal range of motion. Pulmonary: Good air entry bilaterally, scattered rhonchi present. Cardiovascular: Tachycardic. S1 and S2 present. Murmur present. Abdomen: Bowel sounds present. Nontender and nondistended. Musculoskeletal: Normal range of motion. Neuro: The patient is drowsy, responds to loud verbal and tactile stimuli. Extremities: With decreased strength; however, is moving all extremities without any deficits. DIAGNOSTIC STUDIES/LAB DATA: WBC count 8.4, hemoglobin 12.7, hematocrit 38, and platelet count 153. Sodium 142, potassium 4.3, chloride 105, bicarb 28, BUN 35, creatinine 0.83. Troponin slightly elevated at 0.04. TSH slightly elevated at 7.35. CTA and echocardiogram as described above in HPI. Brain CT did show evidence of encephalomalacia without evidence of acute process. IMPRESSION AND RECOMMENDATIONS: This is an 82-year-old female, smoker, with significant smoking history admitted with syncope at home, found to have new- onset atrial fibrillation. The patient also with hypoxemia, which is likely chronic secondary to underlying chronic obstructive pulmonary disease given significant emphysematous changes and smoking status. The patient with evidence of pulmonary hypertension, with signs of cor pulmonale , pulmonary hypertension likely secondary to underlying chronic lung disease. No evidence of pulmonary embolism noted. Management of atrial fibrillation as per Cardiology. I would hold off on any further workup for pulmonary hypertension at this time. She is not a candidate for medications for pulmonary hypertension given concern also with group 2 pulmonary hypertension with underlying valvular abnormalities. I would obtain overnight oximetry on room air and prescribe oxygen if found to be hypoxemic for consistently for 10 minutes with less than 88%. No need for further workup at this time. Will obtain PFTs as outpatient. Thank you for allowing me to participate in the care of your patient. Will follow up with you. [id number]/[facility] #: [id number] DOUGLAS
[2017-09-16] MEDS ORDERED: AMIODARONE 360 MG IV SCH ×2 (19:00)
[2017-09-16] MEDS ORDERED: IVPREMIX IV SCH ×2 (19:00)
[2017-09-16] MEDS: Amiodarone 360 MG IVPREMIX* 360 MG/200 ML BAG IV SCH (19:04)
[2017-09-16] MEDS ORDERED: Furosemide IV* 10 MG/ML VIAL (40 MG) IV ONE (19:50)
[2017-09-16] MEDS ORDERED: Furosemide IV* 10 MG/ML VIAL (40 MG) ONE (20:11)
--- NOTE | 2017-09-16 20:16 | RAD ---
INDICATION: Change in O2 requirements, shortness of breath. COMPARISON: Comparison is made with a prior chest x-ray study from September 14, 2017. TECHNIQUE: A portable view of the chest was obtained. FINDINGS: The heart is moderately enlarged and appears to increase slightly in size. There is mild diffuse prominence of the interstitial markings and small bilateral pleural effusions which have increased suggestive of congestive heart failure. IMPRESSION: FINDINGS SUGGESTIVE OF CONGESTIVE HEART FAILURE DEMONSTRATING INTERVAL PROGRESSION.
[2017-09-16 21:31] LABS: Hematocrit 39 % (35-47); Hemoglobin 12.3 g/dl (12.0-16.0)
--- NOTE | 2017-09-16 21:40 | PN ---
Progress Note - Progress Note Date of Service: 09/16/17 Note: Nursing requested evaluation for lethargy, stable vitals. Mrs Sparrow is minimally arousable to noxious stimuli, only opens eyes, does not focus or respond to questions. Vitals stable. BiPap inappropriate. On HFO2, DNR/I. Prognosis poor. Continue supportive care. Will call son & discuss converting to comfort only should her hemodynamics or pulmonary reserve fail. Kate Millan MD lockstitch back maker apprised & agreed.
[2017-09-17] MEDS: Omeprazole CAP* 20 MG PO SCH (05:57)
[2017-09-17] MEDS: Amiodarone 360 MG IVPREMIX* 360 MG/200 ML BAG IV SCH (07:05)
--- NOTE | 2017-09-17 08:13 | PN ---
Subjective Date of Service: 09/17/17 Interval History: Pt c/o thirst, denies pain. Objective Active Medications: Acetaminophen (Tylenol Tab*) 650 mg PO Q6H PRN PRN Reason: FEVER/PAIN Last Admin: 09/16/17 19:17 Dose: 650 mg Apixaban (Eliquis) 2.5 mg PO BID TOBY Last Admin: 09/16/17 21:19 Dose: Not Given Cyclobenzaprine HCl (Flexeril Tab*) 10 mg PO TID PRN PRN Reason: SPASMS - MUSCLE Last Admin: 09/16/17 19:17 Dose: 10 mg Amiodarone HCl (Nexterone 360 Mg/200 Ml Ivpremix*) 360 mg in 200 mls @ 16.667 mls/hr IV Q12H TOBY; 0.5 MG/MIN PRN Reason: Protocol Stop: 09/17/17 13:00 Last Admin: 09/17/17 07:05 Dose: 16.667 mls/hr Potassium Chloride/Dextrose (D5w 1/2 Ns Kcl 20 Meq 1000 Ml*) 1,000 mls @ 100 mls/hr IV PER RATE TOBY Ondansetron HCl (Zofran Inj*) 4 mg IV Q6H PRN PRN Reason: NAUSEA Last Admin: 09/15/17 21:11 Dose: 4 mg Oxycodone HCl (Roxycodone Tab*) 2.5 mg PO Q4H PRN PRN Reason: PAIN Last Admin: 09/16/17 06:02 Dose: 2.5 mg Tramadol HCl (Ultram*) 50 mg PO Q6H PRN PRN Reason: PAIN Last Admin: 09/16/17 01:28 Dose: 50 mg Vital Signs - 8 hr 09/17/17 09/17/17 09/17/17 01:00 01:01 02:00 Temperature 96.3 F 96.3 F 96.4 F Pulse Rate 111 111 106 Respiratory 20 20 22 Rate Blood Pressure 132/86 117/77 (mmHg) O2 Sat by Pulse 95 94 87 Oximetry 09/17/17 09/17/17 09/17/17 02:01 03:00 03:01 Temperature 96.4 F 96.6 F 96.6 F Pulse Rate 106 109 109 Respiratory 17 20 24 Rate Blood Pressure 117/68 (mmHg) O2 Sat by Pulse 82 97 97 Oximetry 09/17/17 09/17/17 09/17/17 03:50 04:00 04:01 Temperature 96.6 F 96.4 F 96.6 F Pulse Rate 109 109 108 Respiratory 19 20 20 Rate Blood Pressure 119/71 119/72 (mmHg) O2 Sat by Pulse 98 98 97 Oximetry 09/17/17 09/17/17 09/17/17 05:00 05:01 06:00 Temperature 96.4 F 96.4 F 96.4 F Pulse Rate 109 108 109 Respiratory 20 27 22 Rate Blood Pressure 120/77 108/76 (mmHg) O2 Sat by Pulse 97 97 98 Oximetry 09/17/17 09/17/17 09/17/17 06:01 07:00 07:01 Temperature 96.4 F 96.4 F 96.4 F Pulse Rate 108 108 108 Respiratory 22 17 21 Rate Blood Pressure 119/65 (mmHg) O2 Sat by Pulse 97 98 98 Oximetry 09/17/17 07:45 Temperature 96.6 F Pulse Rate Respiratory Rate Blood Pressure (mmHg) O2 Sat by Pulse Oximetry Oxygen Devices in Use Now: High Flow Heated Nasal Cannula Appearance: Alert, partly up in ICU bed. Lying very still, passive, otherwise looks comfortable. Eyes: No Scleral Icterus Neck: NL Appearance and Movements; NL JVP, No Thyroid Enlargement, Masses Respiratory: Symmetrical Chest Expansion and Respiratory Effort, Clear to Auscultation, Clear to Percussion Cardiovascular: NL Sounds; No Murmurs; No JVD, No Edema, - - irreg Extremities: No Edema, No Clubbing, Cyanosis, - Skin: No Rash or Ulcers, No Nodules or Sclerosis, - Neurological: Alert and Oriented x 3, NL Sensation Result Diagrams: 09/16/17 20:18 09/15/17 06:56 Additional Lab and Data: Lab Results 09/14/17 09/14/17 09/14/17 Range/Units 18:35 18:35 18:35 WBC 8.6 (3.5-10.8) 10^3/ul RBC 3.81 L (4.0-5.4) 10^6/ul Hgb 12.7 (12.0-16.0) g/dl Hct 38 (35-47) % MCV 99 H (80-97) fL MCH 33 H (27-31) pg MCHC 34 (31-36) g/dl RDW 14 (10.5-15) % Plt Count 162 (150-450) 10^3/ul MPV 9 (7.4-10.4) um3 Neut % (Auto) 79.0 (38-83) % Lymph % (Auto) 12.8 L (25-47) % [place] % (Auto) 6.3 (1-9) % Eos % (Auto) 0.9 (0-6) % Baso % (Auto) 1.0 (0-2) % Absolute Neuts (auto) 6.8 (1.5-7.7) 10^3/ul Absolute Lymphs (auto) 1.1 (1.0-4.8) 10^3/ul Absolute Monos (auto) 0.5 (0-0.8) 10^3/ul Absolute Eos (auto) 0.1 (0-0.6) 10^3/ul Absolute Basos (auto) 0.1 (0-0.2) 10^3/ul Absolute Nucleated RBC 0 10^3/ul Nucleated RBC % 0.2 Sodium 138 (133-145) mmol/L Potassium 4.0 (3.5-5.0) mmol/L Chloride 103 (101-111) mmol/L Carbon Dioxide 29 (22-32) mmol/L Anion Gap 6 (2-11) mmol/L BUN 31 H (6-24) mg/dL Creatinine 0.80 (0.51-0.95) mg/dL Est GFR ( Amer) 88.5 (>60) Est GFR (Non-Af Amer) 68.8 (>60) BUN/Creatinine Ratio 38.8 H (8-20) Glucose 103 H (70-100) mg/dL Lactic Acid 1.9 (0.5-2.0) mmol/L Calcium 8.4 L (8.6-10.3) mg/dL Magnesium 1.7 L (1.9-2.7) mg/dL Total Bilirubin 0.80 (0.2-1.0) mg/dL AST 20 (13-39) U/L ALT 13 (7-52) U/L Alkaline Phosphatase 73 (34-104) U/L Troponin I 0.03 (<0.04) ng/mL Total Protein 5.3 L (6.4-8.9) g/dL Albumin 2.9 L (3.2-5.2) g/dL Globulin 2.4 (2-4) g/dL Albumin/Globulin Ratio 1.2 (1-3) TSH 7.35 H (0.34-5.60) mcIU/mL Assess/Plan/Problems-Billing Assessment: - Patient Problems (1) PAF (paroxysmal atrial fibrillation) Current Visit: Yes Status: Acute Code(s): I48.0 - PAROXYSMAL ATRIAL FIBRILLATION SNOMED Code(s): 057416727 Comment: Apixaban started 09/15 PM. Unable to take po 09/16 PM. CTA 09/15 negative for PE. One dose digoxin 0.25 mg IV given 09/16, amiodarone 200 mg bid started 09/[address] Mcgee 09/16, will transfer to ICU for IV amiodarone. Still in Afib 09/17, amiodarone load not yet finished. BP good in ICU, ? had wrong size cuff used in past. (2) PHT (pulmonary hypertension) Current Visit: Yes Status: Acute Code(s): I27.20 - PULMONARY HYPERTENSION, UNSPECIFIED SNOMED Code(s): 11595005 Comment: Dr. Hawkins's consultation appreciated. (3) Tobacco abuse Current Visit: Yes Status: Acute Code(s): Z72.0 - TOBACCO USE SNOMED Code( s): 305103452 Comment: Pt advised to quit smoking and avoid second hand smoke. Note lives with her son who smokes. (4) COPD (chronic obstructive pulmonary disease) Current Visit: Yes Status: Acute Code(s): J44.9 - CHRONIC OBSTRUCTIVE PULMONARY DISEASE, UNSPECIFIED SNOMED Code(s): 39795755 Comment: Deterioration overnight 09/16-09/17, mucus plug suctioned but still on Vapotherm at 25 on 09/17. Repeat CXR ordered.
[2017-09-17 08:36] LABS: Hematocrit 39 % (35-47); Hemoglobin 12.7 g/dl (12.0-16.0); Mean Corpuscular HGB Conc 32 g/dl (31-36); Mean Corpuscular Hemoglobin 33 pg (27-31); Mean Corpuscular Volume 103 fL (80-97); Mean Platelet Volume 9 um3 (7.4-10.4); Platelet Count 171 10^3/ul (150-450); Red Blood Count 3.85 10^6/ul (4.0-5.4); Red Cell Distribution Width 16 % (10.5-15); White Blood Count 9.4 10^3/ul (3.5-10.8)
--- NOTE | 2017-09-17 08:45 | RAD ---
INDICATION: Hypoxia. COMPARISON: Comparison is made with a prior chest x-ray study from September 16 2017. TECHNIQUE: An AP portable film of the chest was obtained. FINDINGS: The heart is moderately enlarged and unchanged from the prior study. There are small to moderate size bilateral pleural effusions and diffuse prominence of the interstitial markings most consistent with congestive heart failure which appears unchanged significantly. IMPRESSION: FINDINGS MOST CONSISTENT WITH CONGESTIVE HEART FAILURE, UNCHANGED.
[2017-09-17 08:52] LABS: EGFR Non-African American 22.2 (>60)
[2017-09-17 08:54] LABS: ABS Basophils 0 10^3/ul (0-0.2); ABS Eosinophils 0 10^3/ul (0-0.6); ABS Lymphocytes 0.5 10^3/ul (1.0-4.8); ABS Monocytes 1.2 10^3/ul (0-0.8); ABS Neutrophils 7.7 10^3/ul (1.5-7.7); ABS Nucleated RBC 0 10^3/ul; Eosinophil % 0 % (0-6); Lymphocyte % 5.6 % (25-47); Nucleated Red Blood Cells % 0.3
[2017-09-17] MEDS ORDERED: D5W 1/2 NS KCl 20 Meq 1000 ML* 1,000 ML IV SCH (09:00)
[2017-09-17] MEDS: Apixaban* 2.5 MG TAB PO SCH ×2 (09:24→20:52)
[2017-09-17] MEDS ORDERED: Furosemide IV* 10 MG/ML VIAL (40 MG) IV SLOW PU ONE (11:36)
[2017-09-17] MEDS ORDERED: Furosemide IV* 10 MG/ML 2 ML VIAL (20 MG) ONE (11:47)
--- NOTE | 2017-09-17 13:39 | PN ---
Progress Note - Progress Note Date of Service: 09/17/17 Note: CRITICAL CARE MEDICINE Date: 09/17/17 Time: 12:45 SUBJECTIVE: Patient seen and examined. son at bedside PHYSICAL EXAM: frail Vital Signs: Reviewed. Neurologic: awake, but not conversive. follows commands. HEENT: pupils equal. Sclera anicteric. Trachea midline. Inc jvp with Large venous a and v waves Cardiovascular: S1 S2, 2/6 estela Respiratory: poor air movement and chest excursion with msk limitations as well Abdomen: Soft, thin, nt. Extremities: cool to touch Access: piv LABS: Reviewed. IMAGING: Reviewed. MEDICATIONS: Reviewed. ASSESSMENT: 82 F Acute on chronic hypoxic resp failure Severe emphysema Severe secondary pulm htn PAF YEFRI Ongoing tob use PLAN: At request of hospitalists, I was able to sit and discuss dyanmics with pts son and reviewed her films with him. Pt on HFO2 now given worsening ventilation dynamics. d/w son and understands pt wouldn't want ventilation and nor will bipap probably help her given her dynamics and acute on chronic insults and desie to avoid life support dependency. explained using HFO2 for now, as he would also prefer her to be comfortable, and see if she can equilibrate at all now but understanding her cardiopulm failures, now leading to renal failure and unlikely to be able to overcome these ailments. Support with tx and consider comfort needs. DNR and do not ventilate. Supportive and preventative care per primary. Disposition: ICU presently Code Status: DNR and do not ventilate. Critical Care Time: 30min FShreyas Millan,
[2017-09-17] MEDS ORDERED: Morphine INJ* 2 MG/ML 1 ML SYRINGE (TWO MG - NEW SYRINGE VERSION) IV PRN (17:16)
[2017-09-17] MEDS ORDERED: Amiodarone 150 MG IVPREMIX* 150 MG/100 ML BAG IV ONE (17:23)
[2017-09-17] MEDS: Morphine INJ* 2 MG/ML 1 ML SYRINGE (TWO MG - NEW SYRINGE VERSION) IV PRN (20:58)
[2017-09-17] MEDS: Ondansetron INJ* 2 MG/ML VIAL IV PRN (20:58)
[2017-09-17] MEDS ORDERED: Diltiazem IV* 5 MG/ML 5 ML VIAL (for loading dose/IV Push) (25 MG) IV SLOW PU ONE (23:28)
[2017-09-17] MEDS ORDERED: Diltiazem IV* 5 MG/ML 5 ML VIAL (for loading dose/IV Push) (25 MG) ONE (23:32)
[2017-09-18] MEDS ORDERED: Diltiazem IV VIAL* 125 MG in NS 0.9% 100 ML* 100 ML IV SCH (02:17)
[2017-09-18] MEDS: Morphine INJ* 2 MG/ML 1 ML SYRINGE (TWO MG - NEW SYRINGE VERSION) IV PRN ×3 (02:54→10:28)
[2017-09-18] MEDS: Ondansetron INJ* 2 MG/ML VIAL IV PRN (02:54)
[2017-09-18 04:03] LABS: Hematocrit 37 % (35-47); Hemoglobin 11.9 g/dl (12.0-16.0); Mean Corpuscular HGB Conc 33 g/dl (31-36); Mean Corpuscular Hemoglobin 33 pg (27-31); Mean Corpuscular Volume 102 fL (80-97); Mean Platelet Volume 9 um3 (7.4-10.4); Platelet Count 160 10^3/ul (150-450); Red Cell Distribution Width 15 % (10.5-15); White Blood Count 6.4 10^3/ul (3.5-10.8)
[2017-09-18 04:08] LABS: ABS Basophils 0 10^3/ul (0-0.2); ABS Eosinophils 0 10^3/ul (0-0.6); ABS Lymphocytes 0.3 10^3/ul (1.0-4.8); ABS Monocytes 1.1 10^3/ul (0-0.8); ABS Neutrophils 4.9 10^3/ul (1.5-7.7); ABS Nucleated RBC 0 10^3/ul; Eosinophil % 0.2 % (0-6); Lymphocyte % 4.9 % (25-47); Nucleated Red Blood Cells % 0.5
[2017-09-18 04:16] LABS: EGFR Non-African American 16.6 (>60)
--- NOTE | 2017-09-18 07:41 | PN ---
Subjective Date of Service: 09/18/17 Interval History: Patient poorly responsive. Objective Active Medications: Acetaminophen (Tylenol Tab*) 650 mg PO Q6H PRN PRN Reason: FEVER/PAIN Last Admin: 09/16/17 19:17 Dose: 650 mg Apixaban (Eliquis) 2.5 mg PO BID TOBY Last Admin: 09/17/17 20:52 Dose: Not Given Cyclobenzaprine HCl (Flexeril Tab*) 10 mg PO TID PRN PRN Reason: SPASMS - MUSCLE Last Admin: 09/16/17 19:17 Dose: 10 mg Diltiazem HCl 125 mg/ Sodium (Chloride) 125 mls @ 5 mls/hr IV Q24H TOBY PRN Reason: Protocol Last Admin: 09/18/17 02:53 Dose: 5 mls/hr Morphine Sulfate (Morphine Inj (Syringe)*) 1 mg IV Q1H PRN PRN Reason: PAIN - MODERATE Last Admin: 09/17/17 20:01 Dose: 1 mg Morphine Sulfate (Morphine Inj (Syringe)*) 2 mg IV Q1H PRN PRN Reason: PAIN - SEVERE Last Admin: 09/18/17 02:54 Dose: 2 mg Ondansetron HCl (Zofran Inj*) 4 mg IV Q6H PRN PRN Reason: NAUSEA Last Admin: 09/18/17 02:54 Dose: 4 mg Oxycodone HCl (Roxycodone Tab*) 2.5 mg PO Q4H PRN PRN Reason: PAIN Last Admin: 09/16/17 06:02 Dose: 2.5 mg Tramadol HCl (Ultram*) 50 mg PO Q6H PRN PRN Reason: PAIN Last Admin: 09/16/17 01:28 Dose: 50 mg Vital Signs - 8 hr 09/18/17 09/18/17 09/18/17 00:00 00:01 00:30 Temperature 98.4 F 98.4 F 98.4 F Pulse Rate 116 116 114 Respiratory 16 14 15 Rate Blood Pressure 85/55 90/54 (mmHg) O2 Sat by Pulse 95 95 95 Oximetry 09/18/17 09/18/17 09/18/17 01:00 01:01 02:00 Temperature 98.4 F 98.4 F 98.8 F Pulse Rate 115 112 123 Respiratory 22 18 16 Rate Blood Pressure 89/52 96/56 (mmHg) O2 Sat by Pulse 96 96 96 Oximetry 09/18/17 09/18/17 09/18/17 02:01 02:07 02:54 Temperature 98.8 F 98.8 F Pulse Rate 122 127 Respiratory 18 21 20 Rate Blood Pressure 93/55 (mmHg) O2 Sat by Pulse 96 95 Oximetry 09/18/17 09/18/17 09/18/17 03:00 03:01 03:16 Temperature 99.1 F 99.1 F 99.1 F Pulse Rate 120 122 124 Respiratory 19 18 18 Rate Blood Pressure 85/55 83/50 (mmHg) O2 Sat by Pulse 91 91 92 Oximetry 09/18/17 09/18/17 09/18/17 03:53 04:00 04:01 Temperature 99.0 F 99.0 F 99.0 F Pulse Rate 135 122 122 Respiratory 18 19 20 Rate Blood Pressure 94/60 88/56 (mmHg) O2 Sat by Pulse 96 93 95 Oximetry 09/18/17 09/18/17 09/18/17 04:15 04:30 04:45 Temperature 99.0 F 99.0 F 99.0 F Pulse Rate 116 100 Respiratory 19 30 22 Rate Blood Pressure 85/54 93/54 86/46 (mmHg) O2 Sat by Pulse 95 93 Oximetry 09/18/17 09/18/17 09/18/17 05:00 05:01 05:15 Temperature 98.8 F 98.8 F 98.8 F Pulse Rate 117 117 120 Respiratory 18 28 20 Rate Blood Pressure 89/55 93/59 (mmHg) O2 Sat by Pulse 96 95 96 Oximetry 09/18/17 09/18/17 09/18/17 05:30 05:45 06:00 Temperature 98.8 F 98.8 F 98.8 F Pulse Rate 120 119 107 Respiratory 19 15 18 Rate Blood Pressure 97/56 90/54 90/50 (mmHg) O2 Sat by Pulse 95 95 Oximetry 09/18/17 09/18/17 09/18/17 06:01 06:15 06:30 Temperature 98.8 F 98.8 F 98.6 F Pulse Rate 101 113 119 Respiratory 16 15 14 Rate Blood Pressure 91/54 81/46 (mmHg) O2 Sat by Pulse 92 94 95 Oximetry 09/18/17 09/18/17 09/18/17 06:45 06:46 06:51 Temperature 99.0 F 99.0 F Pulse Rate 117 117 Respiratory 14 19 19 Rate Blood Pressure 88/49 (mmHg) O2 Sat by Pulse 93 93 Oximetry 09/18/17 09/18/17 09/18/17 07:00 07:01 07:02 Temperature 99.1 F 99.1 F 99.1 F Pulse Rate 117 117 115 Respiratory 14 17 15 Rate Blood Pressure 84/49 (mmHg) O2 Sat by Pulse 92 92 92 Oximetry Oxygen Devices in Use Now: High Flow Heated Nasal Cannula Appearance: Head partly up on ICU bed. Eyes closed, not moving. Respiratory: Symmetrical Chest Expansion and Respiratory Effort, Clear to Auscultation, Clear to Percussion Cardiovascular: - - rapid, irreg, distant sounds Extremities: No Edema, No Clubbing, Cyanosis Skin: No Nodules or Sclerosis, - - Both feet mottled Neurological: - - Not responsive to voice or light touch. Result Diagrams: 09/18/17 03:49 09/18/17 04:45 Additional Lab and Data: Lab Results 09/14/17 09/14/17 09/14/17 Range/Units 18:35 18:35 18:35 WBC 8.6 (3.5-10.8) 10^3/ul RBC 3.81 L (4.0-5.4) 10^6/ul Hgb 12.7 (12.0-16.0) g/dl Hct 38 (35-47) % MCV 99 H (80-97) fL MCH 33 H (27-31) pg MCHC 34 (31-36) g/dl RDW 14 (10.5-15) % Plt Count 162 (150-450) 10^3/ul MPV 9 (7.4-10.4) um3 Neut % (Auto) 79.0 (38-83) % Lymph % (Auto) 12.8 L (25-47) % [place] % (Auto) 6.3 (1-9) % Eos % (Auto) 0.9 (0-6) % Baso % (Auto) 1.0 (0-2) % Absolute Neuts (auto) 6.8 (1.5-7.7) 10^3/ul Absolute Lymphs (auto) 1.1 (1.0-4.8) 10^3/ul Absolute Monos (auto) 0.5 (0-0.8) 10^3/ul Absolute Eos (auto) 0.1 (0-0.6) 10^3/ul Absolute Basos (auto) 0.1 (0-0.2) 10^3/ul Absolute Nucleated RBC 0 10^3/ul Nucleated RBC % 0.2 Sodium 138 (133-145) mmol/L Potassium 4.0 (3.5-5.0) mmol/L Chloride 103 (101-111) mmol/L Carbon Dioxide 29 (22-32) mmol/L Anion Gap 6 (2-11) mmol/L BUN 31 H (6-24) mg/dL Creatinine 0.80 (0.51-0.95) mg/dL Est GFR ( Amer) 88.5 (>60) Est GFR (Non-Af Amer) 68.8 (>60) BUN/Creatinine Ratio 38.8 H (8-20) Glucose 103 H (70-100) mg/dL Lactic Acid 1.9 (0.5-2.0) mmol/L Calcium 8.4 L (8.6-10.3) mg/dL Magnesium 1.7 L (1.9-2.7) mg/dL Total Bilirubin 0.80 (0.2-1.0) mg/dL AST 20 (13-39) U/L ALT 13 (7-52) U/L Alkaline Phosphatase 73 (34-104) U/L Troponin I 0.03 (<0.04) ng/mL Total Protein 5.3 L (6.4-8.9) g/dL Albumin 2.9 L (3.2-5.2) g/dL Globulin 2.4 (2-4) g/dL Albumin/Globulin Ratio 1.2 (1-3) TSH 7.35 H (0.34-5.60) mcIU/mL Assess/Plan/Problems-Billing Assessment: - Patient Problems (1) PAF (paroxysmal atrial fibrillation) Current Visit: Yes Status: Acute Code(s): I48.0 - PAROXYSMAL ATRIAL FIBRILLATION SNOMED Code(s): 291100402 Comment: Apixaban started 1/5 PM. Unable to take po 1/6 PM. CTA 09/15 negative for PE. One dose digoxin 0.25 mg IV given 09/16, amiodarone 200 mg bid started 1/[address] Mcgee 09/16, will transfer to ICU for IV amiodarone. Still in Afib 09/17, amiodarone load not yet finished. BP good in ICU, ? had wrong size cuff used in past. Patient likely has poor cardiac output with cerebral and renal dysfunction and inadequate circulation to her legs. Prognosis very poor. Discussed with Dr. Mcgee 09/18. (2) PHT (pulmonary hypertension) Current Visit: Yes Status: Acute Code(s): I27.20 - PULMONARY HYPERTENSION, UNSPECIFIED SNOMED Code(s): 86308034 Comment: Dr. Hawkins's consultation appreciated. (3) Tobacco abuse Current Visit: Yes Status: Acute Code(s): Z72.0 - TOBACCO USE SNOMED Code( s): 820197245 Comment: Pt advised to quit smoking and avoid second hand smoke. Note lives with her son who smokes. (4) COPD (chronic obstructive pulmonary disease) Current Visit: Yes Status: Acute Code(s): J44.9 - CHRONIC OBSTRUCTIVE PULMONARY DISEASE, UNSPECIFIED SNOMED Code(s): 55250783 Comment: Continue Vapotherm.
[2017-09-18] MEDS ORDERED: Amiodarone 150 MG IVPREMIX* 150 MG/100 ML BAG IV ONE ×2 (08:00→13:00)
[2017-09-18] MEDS ORDERED: Haloperidol INJ IV/IM* 5 MG/ML AMP IV SLOW PU PRN (10:56)
[2017-09-18] MEDS ORDERED: Morphine PCA ADULT* 5 MG/ML 30 ML PCA SCH (11:00)
--- NOTE | 2017-09-18 11:00 | PN ---
Progress Note - Progress Note Date of Service: 09/18/17 Note: CRITICAL CARE MEDICINE Date: 09/18/17 Time: 1030 SUBJECTIVE: Patient seen and examined. son and family at bedside PHYSICAL EXAM: frail Vital Signs: Reviewed. Neurologic: awake, but not conversive. weak HEENT: pupils equal. Sclera anicteric. Trachea midline. Inc jvp with Large venous a and v waves Cardiovascular: S1 S2, 2/6 estela Respiratory: poor air movement and worse chest excursion without ability to overcome. Abdomen: Soft, thin, nt. Extremities: cool to touch Access: piv LABS: Reviewed. IMAGING: Reviewed. MEDICATIONS: Reviewed. ASSESSMENT: 82 F Acute on chronic hypoxic resp failure Severe emphysema Severe secondary pulm htn PAF YEFRI Ongoing tob use PLAN: d/w kalli at [facility]. Pt dying. needs comfort measures. She has moments of lucity but shorter, but if she can be comfortable and awake we will continued support today on HFO2, but need to start morphine gtt. When comfortable can re-eval neuro status and need for continued HFO2 life support. Family expresses understanding. want her to be comfortable. Supportive and preventative care per primary. Disposition: ICU presently Code Status: DNR and do not ventilate. Critical Care Time: 30min FShreyas Millan DO
[2017-09-18] MEDS: Apixaban* 2.5 MG TAB PO SCH (11:43)
--- NOTE | 2017-09-18 13:32 | DS ---
CRITICAL CARE MEDICINE DISCHARGE SUMMARY ADMISSION DATE: 09/14/2017 ICU ADMISSION DATE: 09/16/2017 ICU DISCHARGE DATE: 09/18/2017 PRIMARY CARE PROVIDER: Dr. Bailon. REFERRING PHYSICIAN: Dr. Avalos. DIAGNOSIS: 1. Acute on chronic respiratory failure. 2. Severe emphysema. 3. Cor pulmonale. 4. Atrial fibrillation with rapid ventricular response. 5. Component of rate related acute diastolic heart failure. 6. Acute renal failure, with component of acute tubular necrosis. 7. Syncope on admission. 8. Tobacco abuse. MEDICATIONS AT DISCHARGE: None. ALLERGIES: Sulfa. HOSPITAL COURSE: 82 year old female, living with her son, presented intially secondary to fall and hitting head. Major injury ruled out but had worsening respiratory dynamics associated with atrial fibrillation with rapid ventricular response. Likely the cause of her syncope, along with her severe pulmonary hypertension. Negative evaluation for pulmonary embolism. Continued with rate control attempts and eventual conversion with amiodarone but her respiratory mechanics continued to fail requiring high flow oxygen and still worsening right heart failure. Cardioology and pulmonary medicine consulted. Known DNR/ DNI and continued to fail supportive care and ultimately started on morphine with comfort measures sought and allowed to pass peacefully with family at bedside. DISPOSITION: . Cristiano Millan,
[2017-09-18 13:34] VITALS: BP 56/32
== END 2017-09-18 13:44 | disposition expired | DRG 189 ==
LOC: ED 17:58 → MEDTELE 21:24 → OBSVTOIN 09-15 12:00 → ICU 09-16 11:13
PROVIDERS: ADMIT Hospitalist; ATTEND Internal Medicine Critical Care Medicine
DX: J96.20 Acute and chronic respiratory failure, unspecified whether with hypoxia or hypercapnia (principal); N17.0 Acute kidney failure with tubular necrosis; I50.31 Acute diastolic (congestive) heart failure; I48.0 Paroxysmal atrial fibrillation; I11.0 Hypertensive heart disease with heart failure; J43.9 Emphysema, unspecified; I27.81 Cor pulmonale (chronic); F17.210 Nicotine dependence, cigarettes, uncomplicated; I27.20 Pulmonary hypertension, unspecified; Z66 Do not resuscitate; E78.00 Pure hypercholesterolemia, unspecified; M54.5 Low back pain; Z88.2 Allergy status to sulfonamides; Z86.73 Personal history of transient ischemic attack (TIA), and cerebral infarction without residual deficits; Z79.899 Other long term (current) drug therapy; Z80.9 Family history of malignant neoplasm, unspecified; Z82.49 Family history of ischemic heart disease and other diseases of the circulatory system; I36.1 Nonrheumatic tricuspid (valve) insufficiency
CPT/HCPCS: 36415; 36600; 70450; 70486; 71045; 71275; 72125; 80048; 80053; 80162; 82803; 83605; 83735; 84100; 84443; 84484; 85014; 85018; 85025; 85027; 85610; 85730; 93005; 93306; 94760; 99406; A9270-GY; J0282; J1160; J1650; J1940; J2270; J2405; Q9967